=== PATIENT | male | born 1990 | race Caucasian/White ===

== ENCOUNTER 2017-06-07 00:43 | Emergency (ER) | payer OTHER ==
[~2017-06-07] VITALS: Ht 180.3 cm; Wt 79.4 kg
[2017-06-07] MEDS ORDERED: NKM (00:53)
[2017-06-07 00:58] VITALS: BP 142/89
[2017-06-07 01:31] LABS: BASOPHILS % (AUTO) 0.9 % (0.0-2.0); EOSINOPHILS % (AUTO) 6.8 % (0.0-3.0); LYMPHOCYTES % (AUTO) 24.2 % (20.0-45.0); MEAN CORPUSCULAR HEMOGLOBIN 29.4 PG (27.0-31.0); MEAN CORPUSCULAR HGB CONC 33.5 G/DL (32.0-36.0); MEAN CORPUSCULAR VOLUME 88 FL (80-99); MEAN PLATELET VOLUME 7.1 FL (6.5-10.1); MONOCYTES % (AUTO) 6.4 % (1.0-10.0); NEUTROPHILS % (AUTO) 61.7 % (45.0-75.0); PLATELET COUNT 291 K/UL (150-450); RED BLOOD COUNT 4.94 M/UL (4.70-6.10); RED CELL DISTRIBUTION WIDTH 10.9 % (11.6-14.8); WHITE BLOOD COUNT 12.9 K/UL (4.8-10.8)
[2017-06-07 01:59] LABS: ALANINE AMINOTRANSFERASE 21 U/L (12-78); ALBUMIN/GLOBULIN RATIO 1.2 (1.0-2.7); ANION GAP 8 mmol/L (5-15); ASPARTATE AMINO TRANSFERASE 15 U/L (15-37); CALCIUM 9.4 MG/DL (8.5-10.1); CARBON DIOXIDE 30 MMOL/L (21-32); CHLORIDE 104 MMOL/L (98-107); CREATININE 0.9 MG/DL (0.55-1.30); GLOMERULAR FILTRATION RATE > 60 mL/min (>60); POTASSIUM 3.9 MMOL/L (3.5-5.1); SODIUM 142 MMOL/L (136-145); TOTAL PROTEIN 8.1 G/DL (6.4-8.2)
[2017-06-07] MEDS ORDERED: Lidocaine 2% Visc 15ml soln ORAL ONE (03:00)
[2017-06-07] MEDS ORDERED: Albuterol/Ipratropium 3ml neb HHN ONE (03:00)
[2017-06-07] MEDS ORDERED: OMEPRAZOLE20 M3 ORAL (03:21)
[2017-06-07] MEDS ORDERED: LIDOCAINE VISC100 ML ORAL (03:24)
[2017-06-07 03:40] VITALS: BP 131/94
--- NOTE | 2017-06-07 07:00 | Emergency Room Report ---
History of Present Illness General Chief Complaint: Flu Like Symptoms Source: Patient Present Illness HPI This is a 26-year-old male presented after increased cough as well as difficulty with hemoptysis. Patient states he been coughing small amount of blood. He had not been vomiting. The patient denies being a smoker. He denies any leg pain or swelling. The patient reports having recent cough. He been having any fever. Allergies: Coded Allergies: No Known Allergies (Unverified , 06/07/17) Patient History Past Medical History: see triage record Reviewed Nursing Documentation: PMH: Agreed, PSxH: Agreed Nursing Documentation-PMH Past Medical History: No Stated History Review of Systems All Other Systems: negative except mentioned in HPI Physical Exam Vital Signs Date Time Temp Pulse Resp B/P (MAP) Pulse Ox O2 Delivery O2 Flow Rate FiO2 06/07/17 00:48 98.6 100 16 142/89 97 Room Air Sp02 EP Interpretation: reviewed, normal General Appearance: normal inspection, well appearing, no apparent distress, alert, GCS 15 Head: atraumatic ENT: normal ENT inspection, hearing grossly normal, normal voice Neck: normal inspection, full range of motion, supple, no bony tend Respiratory: normal inspection, lungs clear, normal breath sounds, no respiratory distress, no retraction, no wheezing Cardiovascular #1: regular rate, rhythm, no edema Gastrointestinal: normal inspection, normal bowel sounds, non tender, soft, no guarding, no hernia Genitourinary: no CVA tenderness Musculoskeletal: normal inspection, back normal, normal range of motion Neurologic: normal inspection, alert, responsive, speech normal Psychiatric: normal inspection, judgement/insight normal, mood/affect normal Skin: normal inspection, normal color, no rash Medical Decision Making Diagnostic Impression: Primary Impression: Bronchitis ER Course Patient presented for cough. Differential diagnosis included was not limited to pulmonary embolism, vasculitis, coagulopathy, epistaxis, GI bleed among others. Because of complexity of patient's case laboratory testing and imaging studies were ordered. A CT imaging of the chest read by radiology showed no evident pulmonary embolism. Laboratory testing unremarkable. Patient started on acid kelly. He is advised followup with his primary care physician. Last Vital Signs Date Time Temp Pulse Resp B/P (MAP) Pulse Ox O2 Delivery O2 Flow Rate FiO2 06/07/17 03:40 98.6 95 20 131/94 98 Room Air Status: improved Disposition: HOME, SELF-CARE Condition: Stable Scripts Lidocaine HCl 2% Viscous (Lidocaine HCl 2% Viscous) 100 Ml Solution 15 ML ORAL QID, #120 ML Prov: Sander Limon 06/07/17 Omeprazole (OMEPRAZOLE) 20 Mg Tablet. 20 MG ORAL DAILY, #30 TAB Prov: Sander Limon 06/07/17 Patient Instructions: Acute Bronchitis Sander Limon Jun 07, 2017 07:00
--- NOTE | 2017-06-07 08:58 | Diagnostic Imaging Report ---
ndication: Chest pain Technique: IV administration nonionic contrast. Spiral acquisitions obtained from the lung bases to the lung apices. Multiplanar and 3-D reconstructions were generated. Total dose length product 119 mGycm. CTDIvol(s) 12, 63, 23 mGy. Dose reduction achieved using automated exposure control Comparison: None Findings: Contrast opacification of pulmonary arteries is poor and as result exam is nondiagnostic for exclusion of all the large central pulmonary emboli. No gross evidence of such. No pulmonary artery dilatation. No right ventricular dilatation. No thoracic aortic aneurysm or dissection The lungs and pleural spaces are clear. No infiltrates, effusions, masses, nodules, or congestion. There is equivocal distal esophageal wall thickening. No mediastinal or hilar mass or adenopathy. The thyroid is unremarkable. No axillary or chest wall mass or adenopathy. The included upper abdominal viscera are unremarkable. The bones are unremarkable Impression: Poor quality bolus opacification of pulmonary arteries. As a result exam is nondiagnostic for exclusion of peripheral pulmonary emboli. No gross large vessel central pulmonary emboli No acute abnormality This agrees with the preliminary interpretation provided overnight by [facility]. The CT scanner at [facility] is accredited by the [employer] and the scans are performed using protocols designed to limit radiation exposure to as low as reasonably achievable to attain images of sufficient resolution adequate for diagnostic evaluation.
== END 2017-06-07 03:40 | disposition home or self-care (01) ==
LOC: EMR 01:30
DX: J40 Bronchitis, not specified as acute or chronic (principal)
CPT/HCPCS: 36415; 71275; 80053; 85025; 85379; 99283; Q9967; J7620